=== PATIENT | female | born 1985 | race African-American/Black ===

== ENCOUNTER 2020-07-31 15:31 | Emergency (ER) | payer MEDICAID, OTHER ==
[~2020-07-31] VITALS: Ht 157.5 cm; Wt 63.5 kg
[2020-07-31 16:01] VITALS: BP 158/108
[2020-07-31] MEDS ORDERED: IBUPROFEN 800 MG TAB PO ONE (17:30)
== END 2020-07-31 17:38 | disposition home or self-care (01) ==
LOC: ER 15:31
DX: S39.012A Strain of muscle, fascia and tendon of lower back, initial encounter (principal); S00.83XA Contusion of other part of head, initial encounter; F17.210 Nicotine dependence, cigarettes, uncomplicated; F12.10 Cannabis abuse, uncomplicated; Y04.8XXA Assault by other bodily force, initial encounter; Y93.89 Activity, other specified; Y99.8 Other external cause status; Y92.89 Other specified places as the place of occurrence of the external cause
CPT/HCPCS: 70160; 72100; 81025; 93005; 96372